=== PATIENT | male | born 1990 | race Hispanic/Latino ===

== ENCOUNTER 2019-09-15 16:48 | Emergency (ER) | payer SELFPAY ==
[2019-09-15] MEDS ORDERED: Iopamidol-370 76% 500 ML 1 ML ONE (16:52)
[2019-09-15] MEDS ORDERED: Ketorolac Tromethamine 60 MG/2 ML VIAL ONE (17:11)
--- NOTE | 2019-09-15 17:49 | RAD ---
Exam:3 views of right shoulder HISTORY: Pain. Trauma. Fall. COMPARISON: None FINDINGS: Glenohumeral dislocation. No fracture. No cortical irregularity or periosteal reaction. Vis ualized right ribs are unremarkable IMPRESSION: No fracture or dislocation.
--- NOTE | 2019-09-15 17:53 | CT ---
Exam: Head CT without contrast HISTORY: Trauma. Pain. COMPARISON: none FINDINGS: Hemorrhage: No intraparenchymal hemorrhage or extra-axial hematoma. Brain parenchyma: Cortical islas-white matter differentiation is preserved. No mass effect or midline shift. Basilar cisterns are patent. Ventricular system: Ventricles and sulci are patent and symmetric. Calvarium: Intact. Sinuses and mastoid air cells: Adequate aeration. IMPRESSION: No intracranial posttraumatic sequelae.
--- NOTE | 2019-09-15 17:57 | CT ---
Exam: CT CERVICAL SPINE WITHOUT CONTRAST: HISTORY: Trauma. Pain. COMPARISON: None FINDINGS: No craniocervical dissociation. Appropriate alignment of the lateral masses of C1 and C2. Intact odon toid process There is a fracture involving the superior right C7 facet. Fracture fragment is in the right C6-C7 ne ural foramen. Fracture does extend into the right C7 lamina. Fracture is adjacent to the right C7 transverse process. Fracture is near the right vertebral artery. If there is concern for dissection, consider CT angiogram of the neck. Soft tissue neck structures: No mass, lymphadenopathy or hematoma. No prevertebral soft tissue swelli ng. Upper mediastinum and lung apices: Unremarkable Central spinal canal: Right neural foramen is narrowed at C6-C7 due to fracture fragment. Remaining n eural foramina are patent. No significant stenosis of the central spinal canal Vertebral bodies: No vertebral body fracture. IMPRESSION: 1. Fracture involving the C7 right lamina, right facet and right transverse process as described abov e. There is resultant narrowing of the right neural foramen due to fracture fragment. 2. Right C7 transverse process fractures adjacent to the expected course of the right cervical verteb ral artery. CT angiogram of the neck if clinically warranted. Results of the study discussed with Dr. Meyer 09/15/2019 at 5:56 PM Code CR Transcribed Date/Time: 09/15/2019 6:10 PM
--- NOTE | 2019-09-15 21:38 | CT ---
CT ANGIOGRAM OF THE NECK: History: C7 fracture. Evaluate for possible vertebral artery injury. Comparison: None. Correlation: Cervical spine CT 09-15-19 Technique: CT angiogram of the neck is performed in the axial plane. 3D images are submitted for inte rpretation. FINDINGS: Visualized brain parenchyma demonstrates appropriate enhancement. Bilateral ocular lenses are appropriately located. Both globes are intact. Retrobulbar fat is preserv ed. Aerodigestive tract is patent. No mucosal abnormality. No obvious masses of the oral cavity. Midline fatty roofea of the tongue is preserved. Epiglottis has a normal caliber. Preepiglottic fat is preser tanisha. Symmetric attenuation of the parotid submandibular gland. Unremarkable thyroid gland. No evidence of lymphadenopathy by size criteria. Symmetric attenuation of the paraspinal muscles. Upper mediastinum and lung apices are unremarkable. Redemonstration of the C7 right lamina, right facet, and right transverse process fracture. There is narrowing of the right neural [place] at the C6-7 secondary to fracture fragment. CT ANGIOGRAM: The aortic arch has appropriate enhancement and luminal diameter. Right carotid: The right carotid artery origin, common carotid artery, carotid bifurcation and customer operations intern al carotid artery have appropriate enhancement and luminal diameter. Left carotid: The left carotid artery origin, common carotid artery, carotid bifurcation and internal carotid artery have appropriate enhancement and luminal diameter. Bilateral subclavian arteries are unremarkable. Bilateral cervical vertebral arteries are patent throughout their course in the neck. Right vertebral artery is dominant. There does not appear to be evidence of injury or hematoma with respect to the r ight vertebral artery. At the level of the fracture, the right vertebral artery is slightly removed f rom the fracture site. There is no evidence of adjacent hematoma or abnormal configuration of the jimi tebral artery. IMPRESSION: 1. Right C7 fracture as described above. 2. No evidence of vertebral artery injury. POS: PPP
== END 2019-09-15 21:00 | disposition home or self-care (01) ==
LOC: ERS 16:48
DX: S06.9X9A Unspecified intracranial injury with loss of consciousness of unspecified duration, initial encounter (principal); S12.600A Unspecified displaced fracture of seventh cervical vertebra, initial encounter for closed fracture; W14.XXXA Fall from tree, initial encounter
CPT/HCPCS: 70450; 70498; 72125; 93005; 96372; J1885; L0120; Q9967

== ENCOUNTER 2022-06-01 04:20 | Inpatient (IN) | payer SELFPAY ==
[~2022-06-01 04:20] MED LIST: Midazolam HCl 2 mg/2 ml Vial ONE; levETIRAcetam 500 MG/5 ML VIAL ONE
[2022-06-01] MEDS ORDERED: chlordiazePOXIDE HCl 25 MG CAP PO SCH (05:00)
[2022-06-01] MEDS ORDERED: Lorazepam 2 MG/ML VIAL SLOW IVP PRN (06:55)
[2022-06-01 07:14] LABS: Bilirubin Negative (Negative); Blood, Urine Negative (Negative); Clarity Clear (Clear); Glucose, Urine (Dipstick) Normal (Negative); Ketone, Urine Negative (Negative); Leukocyte Negative Leu/uL (Negative); Nitrite Negative (Negative); Protein, Urine (Dipstick) 30 mg/dL (Neg-Trace); Specific Gravity, Urine 1.011 (1.002-1.036); Urobilinogen Normal mg/dL (Less than 2)
[2022-06-01] MEDS ORDERED: Ondansetron ODT 4 MG TAB PO PRN (07:55)
[2022-06-01] MEDS ORDERED: Lorazepam 2 MG/ML VIAL IM PRN (07:55)
[2022-06-01] MEDS ORDERED: Lorazepam 1 MG TAB PO PRN (07:55)
[2022-06-01 07:58] LABS: ALT (SGPT) 26 U/L (8-55); AST (SGOT) 45 U/L (5-34); Acetaminophen Less than 10.0 mcg/mL (10.0-30.0); Albumin 4.8 g/dL (3.5-5.0); Alcohol Less than 10 mg/dL (Less than 10); Alkaline Phosphatase 43 U/L (40-110); Anion Gap 21 mmol/L (10-20); BUN (Urea Nitrogen) 5 mg/dL (8.9-20.6); Bilirubin, Total 1.2 mg/dL (0.2-1.2); Calc. Creatinine Clearance 0 mL/min (70-130); Carbon Dioxide 23 mmol/L (22-29); Chloride 99 mmol/L (98-107); Estimated GFR 123; Globulin 3.3 g/dL (2.4-3.5); Glucose 119 mg/dL (70-105); Lipase 115 U/L (8-78); Magnesium 2.1 mg/dL (1.6-2.6); Potassium 3.8 mmol/L (3.5-5.1); Protein, Total 8.1 g/dL (6.0-8.3); Salicylate Less than 8.0 mg/dL (15.0-30.0); Sodium 139 mmol/L (136-145)
[2022-06-01] MEDS ORDERED: Electrolyte Replacement Protocol 1 EACH FS SCH (08:00)
[2022-06-01 09:05] LABS: Phosphorus 3.1 mg/dL (2.3-4.7)
[2022-06-01] MEDS ORDERED: Docusate 100 MG CAP PO PRN (09:38)
[2022-06-01 10:15] VITALS: BMI 19.5
[2022-06-01] MEDS: Sodium Chloride 0.9% 1,000 ML IV SCH ×2 (10:30→13:26)
[2022-06-01] MEDS: Multivitamins, Adult 10 ML, Folic Acid 1 MG, Thiamine HCl 100 MG in Dextrose 5 %-0.45 %... IV SCH (10:41)
[2022-06-01] MEDS: Lorazepam 1 MG TAB PO SCH ×3 (10:41→20:12)
[2022-06-01 10:47] LABS: #Basophils 0.1 thou/uL (0.0-0.2); #Eosinphils 0.1 thou/uL (0.0-0.7); #Lymphocytes 1.2 thou/uL (1.20-3.40); #Monocytes 0.5 thou/uL (0.11-0.59); #Neutrophils 1.9 thou/uL (1.40-6.50); %Basophils 1.5 % (0.0-1.0); %Eosinophils 1.6 % (0.0-10.0); %Monocytes 13.6 % (0.0-10.0); %Neutrophils 51.3 % (42.0-75.0); Hemoglobin 13.8 g/dL (14.0-18.0); Mean Corpuscular HGB CONC 34.6 g/dL (32.0-36.0); Mean Corpuscular Hemoglobin 35.9 pg (27.0-31.0); Mean Platelet Volume 8.2 fL (7.4-10.4); Platelet Count 101 thou/uL (130-400); RBC Distribution Width 12.7 % (11.5-14.5); Red Blood Cell (RBC) Count 3.83 mill/uL (4.70-6.10); White Blood Cell (WBC) Count 3.6 thou/uL (4.8-10.8)
[2022-06-01 11:24] LABS: Syphilis Antibody Nonreactive (Nonreactive); Syphilis Antibody Index 0.02 S/CO (<1.00 Non-Reactive)
[2022-06-02] MEDS: Lorazepam 1 MG TAB PO SCH ×4 (02:05→19:51)
[2022-06-02] MEDS ORDERED: Lorazepam 1 MG TAB PO PRN (07:55)
[2022-06-02 08:21] LABS: ALT (SGPT) 25 U/L (8-55); AST (SGOT) 32 U/L (5-34); Albumin 4.4 g/dL (3.5-5.0); Alkaline Phosphatase 40 U/L (40-110); Anion Gap 14 mmol/L (10-20); BUN (Urea Nitrogen) 6 mg/dL (8.9-20.6); Bilirubin, Direct 0.5 mg/dL (0.1-0.3); Bilirubin, Total 1.6 mg/dL (0.2-1.2); Calc. Creatinine Clearance 103 mL/min (70-130); Calcium 9.8 mg/dL (7.8-10.44); Carbon Dioxide 26 mmol/L (22-29); Chloride 99 mmol/L (98-107); Estimated GFR 124; Globulin 2.9 g/dL (2.4-3.5); Glucose 145 mg/dL (70-105); Magnesium 1.9 mg/dL (1.6-2.6); Potassium 3.9 mmol/L (3.5-5.1); Protein, Total 7.3 g/dL (6.0-8.3); Sodium 135 mmol/L (136-145)
[2022-06-02] MEDS ORDERED: Magnesium 2 GM/50 ML(in water) 2 GM in Premix Bag 1 BAG IVPB SCH (10:00)
[2022-06-02] MEDS ORDERED: Magnesium 2 GM/50 ML BAG (IN WATER) ONE (11:30)
[2022-06-02] MEDS: Multivitamins, Adult 10 ML, Folic Acid 1 MG, Thiamine HCl 100 MG in Dextrose 5 %-0.45 %... IV SCH (13:50)
[2022-06-03] MEDS: Lorazepam 1 MG TAB PO SCH (02:13)
[2022-06-03 06:51] VITALS: BP 132/86; TEMP 97.5
[2022-06-03] MEDS ORDERED: Lorazepam 1 MG TAB PO PRN (07:55)
[2022-06-03] MEDS ORDERED: Lorazepam 0.5 MG TAB PO SCH (08:00)
[2022-06-04] MEDS ORDERED: Lorazepam 0.5 MG TAB PO PRN (07:55)
== END 2022-06-03 08:51 | disposition left against medical advice (07) | DRG 101 ==
LOC: ERS 05:58 → 2NO 07:37 → T4-A 06-02 18:17
PROVIDERS: ADMIT Student in an Organized Health Care Education/Training Program; ATTEND Internal Medicine
DX: G40.89 Other seizures (principal); F10.239 Alcohol dependence with withdrawal, unspecified; Y90.0 Blood alcohol level of less than 20 mg/100 ml; Z20.822 Contact with and (suspected) exposure to COVID-19
CPT/HCPCS: 36415; 36416; 71045; 80053; 80307; 81003; 82248; 83690; 83735; 84100; 85025; 86780; 90471; 90732; G0009; J1953; J2250; J3411; J3475; J7042; Q0162; U0003; U0005